=== PATIENT | female | born 1960 | race Caucasian/White ===

== ENCOUNTER 2017-08-21 13:47 | Emergency (ER) | payer OTHER ==
[~2017-08-21] VITALS: Ht 160 cm; Wt 63.5 kg
[~2017-08-21 13:47] MED LIST: ALLEGRA180 MG PO; FLEXERIL PO; LEXAPRO20 MG PO; NORCO 5-325 TA1 EACH PO; ORTHO TRI-CYCL1 EACH; PENICILLIN VK500 MG PO; TRAZODONE 150150 M1 PO; ULTRAM 50MG TAB50 MG PO
[2017-08-21] MEDS ORDERED: OSELB75 PO (14:41)
[2017-08-21] MEDS ORDERED: KEFLEX500 M2 PO (15:06)
== END 2017-08-21 15:08 | disposition home or self-care (01) ==
LOC: ER 13:47
DX: J10.1 Influenza due to other identified influenza virus with other respiratory manifestations (principal); F32.9 Major depressive disorder, single episode, unspecified; F17.210 Nicotine dependence, cigarettes, uncomplicated; L60.0 Ingrowing nail

== ENCOUNTER 2019-01-23 13:33 | Emergency (ER) | payer OTHER ==
[~2019-01-23] VITALS: Ht 162.6 cm; Wt 62.6 kg
[~2019-01-23 13:33] MED LIST changes: +KEFLEX500 M2 PO; +OSELB75 PO
[2019-01-23 13:46] VITALS: BP 138/86
[2019-01-23] MEDS ORDERED: AUGMENTIN 875-1 EACH PO (14:42)
== END 2019-01-23 14:47 | disposition home or self-care (01) ==
LOC: ER 13:33
DX: K02.9 Dental caries, unspecified (principal); F17.210 Nicotine dependence, cigarettes, uncomplicated; Z96.653 Presence of artificial knee joint, bilateral

== ENCOUNTER 2019-02-21 14:02 | Emergency (ER) | payer OTHER ==
[~2019-02-21] VITALS: Ht 162.6 cm; Wt 63.5 kg
[~2019-02-21 14:02] MED LIST changes: +AUGMENTIN 875-1 EACH PO
[2019-02-21] MEDS ORDERED: XANAX1 MG PO (14:46)
[2019-02-21] MEDS ORDERED: TRAMADOL 50 MG50 MG PO (14:46)
[2019-02-21] MEDS ORDERED: LEXAPRO 10 MG T10 M2 PO (14:46)
[2019-02-21] MEDS ORDERED: PREDNISONE 20 M20 MG PO (15:49)
[2019-02-21] MEDS ORDERED: PROMETH-CODEIN 65 ML PO (15:49)
[2019-02-21] MEDS ORDERED: TESSALON PERLE100 MG PO (15:49)
[2019-02-21] MEDS ORDERED: VENTOLIN HFA 1818 GM INH (15:49)
[2019-02-21 16:15] VITALS: BP 111/76
== END 2019-02-21 16:19 | disposition home or self-care (01) ==
LOC: ER 14:02
DX: J40 Bronchitis, not specified as acute or chronic (principal); F32.9 Major depressive disorder, single episode, unspecified; F17.210 Nicotine dependence, cigarettes, uncomplicated; Z96.653 Presence of artificial knee joint, bilateral

== ENCOUNTER → 2019-03-14 | Outpatient (CLI) | payer OTHER ==
[~2019-03-14] MED LIST changes: +LEXAPRO 10 MG T10 M2 PO; +PREDNISONE 20 M20 MG PO; +PROMETH-CODEIN 65 ML PO; +TESSALON PERLE100 MG PO; +TRAMADOL 50 MG50 MG PO; +VENTOLIN HFA 1818 GM INH; +XANAX1 MG PO
== END ==
LOC: CAT 13:04
DX: Z13.6 Encounter for screening for cardiovascular disorders (principal); E78.00 Pure hypercholesterolemia, unspecified; I25.10 Atherosclerotic heart disease of native coronary artery without angina pectoris

== ENCOUNTER → 2019-05-15 | Outpatient (CLI) | payer OTHER | LOC: MRI 13:02 | DX: M50.11 Cervical disc disorder with radiculopathy, high cervical region (principal); M12.88 Other specific arthropathies, not elsewhere classified, other specified site; M48.02 Spinal stenosis, cervical region; M50.122 Cervical disc disorder at C5-C6 level with radiculopathy ==

== ENCOUNTER → 2019-07-11 | Outpatient (CLI) | payer OTHER ==
[~2019-07-11] MED LIST changes: +REMERON15 M2 PO
== END ==
LOC: MRI 10:01
DX: M51.16 Intervertebral disc disorders with radiculopathy, lumbar region (principal); M47.22 Other spondylosis with radiculopathy, cervical region; M12.88 Other specific arthropathies, not elsewhere classified, other specified site; G95.0 Syringomyelia and syringobulbia